=== PATIENT | female | born 1945 | race Caucasian/White ===

== ENCOUNTER 2018-11-25 21:13 | Emergency (ER) | payer OTHER, MEDICARE ==
[2018-11-25 21:53] LABS: PLATELET COUNT 221 10^3/uL (150-400)
[2018-11-25] MEDS ORDERED: NS 1,000 ML IV ONE (21:55)
--- NOTE | 2018-11-25 21:56 | EDPHY ---
H & P Stated Complaint: shaky and numbness in feet, tired, arrived from [place] tuesday Time Seen by Provider: 11/25/18 21:50 HPI/ROS: HPI CHIEF COMPLAINT: Multiple complaints, fatigue, lightheadedness, numbness and tingling, not feeling well HISTORY OF PRESENT ILLNESS: This patient is a very pleasant 73-year-old female she has a history of hypertension, thyroid disease, history of C diff remotely, she is visiting her relatives here in [place] from [place]. She flew on Tuesday from [place] to [place]. Each day she has felt subsequently worse. She complains of fatigue, lightheadedness, somewhat generalized weakness, numbness and tingling in her hands and feet. She has not had any vomiting or diarrhea. Complains of no significant chest pain or shortness of breath. She does state that on Tuesday she was rolling around the ground and felt a pop in the left side of her chest while playing with her grandkid she immediately had pain. She denies current any left-sided chest pain at this time. Past Medical History: Thyroid disease, hypertension, history of C diff, history of AFib Past Surgical History: No recent surgical history Social History: Denies daily use of drugs alcohol tobacco. Resides part-time in [place] part-time in [place]. Family History: Noncontributory ROS REVIEW OF SYSTEMS: 10 Systems were reviewed and negative with the exception of the elements mentioned in the history of present illness. Exam Constitutional triage nursing summary reviewed, vital signs reviewed, awake/ alert. Eyes normal conjunctivae and sclera, EOMI, PERRLA. HENT normal inspection, atraumatic, moist mucus membranes, no epistaxis, neck supple/ no meningismus, no raccoon eyes. Respiratory clear to auscultation bilaterally, normal breath sounds, no respiratory distress, no wheezing. Cardiovascular rate normal, regular rhythm, no murmur, no edema, distal pulses normal. Gastrointestinal soft, non-tender, no rebound, no guarding, normal bowel sounds, no distension, no pulsatile mass. Genitourinary no CVA tenderness. Musculoskeletal no midline vertebral tenderness, full range of motion, no calf swelling, no tenderness of extremities, no meningismus, good pulses, neurovascularly intact. Skin pink, warm, & dry, no rash, skin atraumatic. Neurologic awake, alert and oriented x 3, AAOx3, moves all 4 extremities equally, motor intact, sensory intact, CN II-XII intact, normal cerebellar, normal vision, normal speech. Psychiatric normal mood/affect. Heme/Lymph/Immune no lymphadenopathy. Differential Diagnosis: Differential diagnosis includes but is not limited to: ACS, atypical chest pain, pneumothorax, pneumonia, pulmonary embolism, aortic dissection, congestive heart failure, tumor, musculoskeletal pain, esophageal pain, GERD, peptic ulcer disease, pancreatitis Medical Decision Making: Plan for this patient IV establishment IV fluid bolus , basic electrolytes, thyroid, D-dimer, troponin, EKG, chest x-ray re-evaluate Re-evaluation: EKG interpretation by me on record in [facility] system. Impression time of EKG 2134, sinus rhythm rate of 76, no signs of acute ischemia on the EKG. D-dimer is negative. Chest x-ray two view reviewed negative for acute cardiopulmonary disease. Troponin 0.00 1226: Patient re-evaluated this time she is resting comfortably her blood pressure greatly improved with observation emergency room blood pressure 136/70. She denies any chest pain or shortness of breath she has received 1 L fluid here and is feeling better. Urinalysis reviewed shows urinary tract infection urine culture sent 1st dose of Rocephin given in emergency room Keflex and peridium for home. I encouraged her to stay well-hydrated drink lots of fluids and rest. I do believe she has a component about due to illness. There is no evidence acute coronary syndrome here. I believe she rest, stay well-hydrated, treat her urinary tract infection, deals with altitude she should do well however if she has worsening symptoms she understands to come to the emergency room. Patient is a repeat EKG time 12:42 a.m., sinus rhythm rate of 60 I do not appreciate acute ischemia. 1:17 a.m. I did discussed this case with Dr. Antoine cardiology on-call we reviewed her EKGs and case with 2-troponins she did not feel that either EKG was acutely ischemic and feels comfortable with the plan going home. I did discuss the patient had minimally enlarged heart on her chest x-ray and she was hypertensive when she arrived here. This is all improved, blood pressure is currently 136/70. I do recommend when she gets home to [place] or [place] she follows up with her primary care doctor. I have discussed at length with her. Additionally if she has any worsening symptoms while in town this includes shortness of breath, chest pain, fever, vomiting, not doing well she should return to the emergency room. I discussed the case with the patient I discussed that she is slightly low sodium needs to be followed up with her primary care doctor and increase her sodium intake, additionally most likely has altitude illness. I discussed that her EKG showed no acute ischemia but do have slight intraventricular conduction delay, that her cardiac silhouette on her chest x-ray was slightly enlarged. I do recommend when she returns to [place] or [place] where she lives permanently that she follows up with primary care doctor and additionally gets an echocardiogram of her heart. We discussed this at length her she is comfortable this plan she is eager to be discharged in emergency room she denies any chest pain or shortness of breath and wants to get home. We discussed return precautions. She is comfortable as planned is comfortable this plan. 2-troponins. Source: Patient - Personal History Current Tetanus Diphtheria and Acellular Pertussis (TDAP): Yes - Medical/Surgical History Hx Asthma: No Hx Chronic Respiratory Disease: No Hx Diabetes: No Hx Cardiac Disease: No Hx Renal Disease: No Hx Cirrhosis: No Hx Alcoholism: No Hx HIV/AIDS: No Hx Splenectomy or Spleen Trauma: No Other PMH: hypyothroid, afib, - Social History Smoking Status: Never smoked Constitutional: Initial Vital Signs Temperature (C) 37 C 11/25/18 21:18 Heart Rate 80 11/25/18 21:18 Respiratory Rate 16 11/25/18 21:18 Blood Pressure 194/106 H 11/25/18 21:18 O2 Sat (%) 97 11/25/18 21:18 O2 Delivery Mode Nasal Cannula O2 (L/minute) 2 Allergies/Adverse Reactions: risedronate sodium Allergy (Verified 11/25/18 21:16) Home Medications: Medication Instructions Recorded Aspirin 81mg (*) 11/25/18 Calcium 11/25/18 FLORASTOR 11/25/18 Magnesium Oxide 11/25/18 Metoprolol ER-Hctz 100-12.5 mg 11/25/18 Synthroid 11/25/18 Vit D3-Vit K/Berberine/Hops 11/25/18 Yuvafem 11/25/18 Cephalexin [Keflex] 500 mg PO Q6H #28 cap 04/21/19 Phenazopyridine HCl [Pyridium] 200 mg PO TID #15 tab 11/26/18 Medical Decision Making - Diagnostics Imaging Results: Imaging Impressions Chest X-Ray 11/25/18 21:31 Impression: 1. Clear lungs. No acute pulmonary process. 2. Minimal cardiomegaly. No failure. 3. No pneumoperitoneum. - Data Points Laboratory Results: Laboratory Results 11/25/18 21:32 11/25/18 21:32 11/26/18 11/25/18 11/25/18 00:35 23:05 22:34 WBC RBC Hgb Hct MCV MCH MCHC RDW Plt Count MPV Neut % (Auto) Lymph % (Auto) [place] % (Auto) Eos % (Auto) Baso % (Auto) Nucleat RBC Rel Count Absolute Neuts (auto) Absolute Lymphs (auto) Absolute Monos (auto) Absolute Eos (auto) Absolute Basos (auto) Absolute Nucleated RBC Immature Gran % Immature Gran # PT INR APTT D-Dimer Sodium Potassium Chloride Carbon Dioxide Anion Gap BUN Creatinine Estimated GFR Glucose Calcium Magnesium Total Bilirubin Conjugated Bilirubin Unconjugated Bilirubin AST ALT Alkaline Phosphatase POC Troponin I 0.00 ng/mL ng/mL 0.00 ng/mL ng/mL (0.00-0.08) (0.00-0.08) Total Protein Albumin Lipase Urine Color COLORLESS Urine Appearance CLEAR Urine pH 6.0 (5.0-7.5) Ur Specific [place] 1.002 (1.002-1.030) Urine Protein NEGATIVE (NEGATIVE) Urine Ketones NEGATIVE (NEGATIVE) Urine Blood 1+ H (NEGATIVE) Urine Nitrate NEGATIVE (NEGATIVE) Urine Bilirubin NEGATIVE (NEGATIVE) Urine Urobilinogen NEGATIVE EU EU (0.2-1.0) Ur Leukocyte Esterase TRACE H (NEGATIVE) Urine RBC 1-3 /hpf /hpf (0-3) Urine WBC 3-5 /hpf H /hpf (0-3) Ur Epithelial Cells TRACE /lpf /lpf (NONE-1+) Urine Bacteria TRACE /hpf H /hpf (NONE SEEN) Urine Glucose NEGATIVE (NEGATIVE) 11/25/18 11/25/18 11/25/18 21:32 21:32 21:32 WBC 6.94 10^3/uL 10^3/uL (3.80-9.50) RBC 4.15 10^6/uL L 10^6/uL (4.18-5.33) Hgb 12.7 g/dL g/dL (12.6-16.3) Hct 37.6 % L % (38.0-47.0) MCV 90.6 fL fL (81.5-99.8) MCH 30.6 pg pg (27.9-34.1) MCHC 33.8 g/dL g/dL (32.4-36.7) RDW 12.6 % % (11.5-15.2) Plt Count 221 10^3/uL 10^3/uL (150-400) MPV 9.5 fL fL (8.7-11.7) Neut % (Auto) 42.5 % % (39.3-74.2) Lymph % (Auto) 41.6 % % (15.0-45.0) [place] % (Auto) 12.2 % % (4.5-13.0) Eos % (Auto) 2.7 % % (0.6-7.6) Baso % (Auto) 0.9 % % (0.3-1.7) Nucleat RBC Rel Count 0.0 % % (0.0-0.2) Absolute Neuts (auto) 2.94 10^3/uL 10^3/uL (1.70-6.50) Absolute Lymphs (auto) 2.89 10^3/uL 10^3/uL (1.00-3.00) Absolute Monos (auto) 0.85 10^3/uL H 10^3/uL (0.30-0.80) Absolute Eos (auto) 0.19 10^3/uL 10^3/uL (0.03-0.40) Absolute Basos (auto) 0.06 10^3/uL 10^3/uL (0.02-0.10) Absolute Nucleated RBC 0.00 10^3/uL 10^3/uL (0-0.01) Immature Gran % 0.1 % % (0.0-1.1) Immature Gran # 0.01 10^3/uL 10^3/uL (0.00-0.10) PT 11.6 SEC L SEC (12.0-15.0) INR 0.88 (0.83-1.16) APTT 29.2 SEC SEC (23.0-38.0) D-Dimer 0.44 ug/mLFEU ug/mLFEU (0.00-0.50) Sodium 129 mEq/L L mEq/L (135-145) Potassium 4.1 mEq/L mEq/L (3.5-5.2) Chloride 95 mEq/L L mEq/L (97-110) Carbon Dioxide 25 mEq/l mEq/l (22-31) Anion Gap 9 mEq/L mEq/L (6-14) BUN 14 mg/dL mg/dL (7-23) Creatinine 0.9 mg/dL mg/dL (0.6-1.0) Estimated GFR > 60 Glucose 90 mg/dL mg/dL (70-100) Calcium 9.2 mg/dL mg/dL (8.5-10.4) Magnesium 2.0 mg/dL mg/dL (1.6-2.3) Total Bilirubin 0.6 mg/dL mg/dL (0.1-1.4) Conjugated Bilirubin 0.2 mg/dL mg/dL (0.0-0.5) Unconjugated Bilirubin 0.4 mg/dL mg/dL (0.0-1.1) AST 27 IU/L IU/L (14-46) ALT 42 IU/L IU/L (9-52) Alkaline Phosphatase 78 IU/L IU/L (38-126) POC Troponin I Total Protein 7.2 g/dL g/dL (6.3-8.2) Albumin 4.2 g/dL g/dL (3.5-5.0) Lipase 99 IU/L IU/L (23-300) Urine Color Urine Appearance Urine pH Ur Specific [place] Urine Protein Urine Ketones Urine Blood Urine Nitrate Urine Bilirubin Urine Urobilinogen Ur Leukocyte Esterase Urine RBC Urine WBC Ur Epithelial Cells Urine Bacteria Urine Glucose Medications Given: Discontinued Medications Sodium Chloride (Ns) 1,000 mls @ 0 mls/hr IV EDNOW ONE; Wide Open PRN Reason: Protocol Stop: 11/25/18 21:56 Last Admin: 11/25/18 22:18 Dose: 1,000 mls Ceftriaxone Sodium/Dextrose (Rocephin 1 Gm (Premix)) 50 mls @ 100 mls/hr IV EDNOW ONE PRN Reason: Protocol Stop: 11/26/18 00:26 Last Admin: 11/26/18 00:07 Dose: 50 mls Sodium Chloride (Ns) 500 mls @ 0 mls/hr IV ONCE ONE PRN Reason: Wide Open Stop: 11/26/18 00:27 Last Admin: 11/26/18 00:35 Dose: 500 mls Point of Care Test Results: Chemistry 11/26/18 11/25/18 00:35 22:34 POC Troponin I 0.00 ng/mL ng/mL 0.00 ng/mL ng/mL (0.00-0.08) (0.00-0.08) Departure - Departure Disposition: Home, Routine, Self-Care Clinical Impression: Lightheadedness, UTI (urinary tract infection) Condition: Good Instructions: Urinary Tract Infection in Women (ED), Mountain Sickness (ED), Near Syncope (ED), Lightheadedness (ED) Additional Instructions: 1. Stay well-hydrated drink lots of fluids and rest. 2. Return to the emergency room if develops worsening symptoms includes worsening shortness of breath, chest pain, fever, vomiting, not doing well 3. Antibiotics as prescribed Referrals: NONE *PRIMARY CARE P,. [Primary Care Provider] - As per Instructions [facility],. [Clinic] - As per Instructions Prescriptions: Cephalexin [Keflex] 500 mg PO Q6H #28 cap Phenazopyridine HCl [Pyridium] 200 mg PO TID #15 tab
[2018-11-25 22:10] LABS: INR 0.88 (0.83-1.16); PROTIME(PATIENT) 11.6 SEC (12.0-15.0)
[2018-11-26] MEDS ORDERED: NS 500 ML IV ONE (00:26)
[2018-11-26 01:15] VITALS: BP 117/74
--- NOTE | 2018-11-27 09:52 | CPEKG ---
Test Reason : OPEN Blood Pressure : / mmHG Vent. Rate : 076 BPM Atrial Rate : 076 BPM P-R Int : 178 ms QRS Dur : 112 ms QT Int : 372 ms P-R-T Axes : 052 015 035 degrees QTc Int : 419 ms Sinus rhythm Confirmed by Isaak Dyson ([id number]) on 11/27/2018 9:52:07 AM Referred By: PHYSICIAN ED Confirmed By:Isaak Dyson
--- NOTE | 2018-12-04 21:51 | CPEKG ---
Test Reason : OPEN Blood Pressure : / mmHG Vent. Rate : 060 BPM Atrial Rate : 060 BPM P-R Int : 189 ms QRS Dur : 109 ms QT Int : 440 ms P-R-T Axes : 054 008 020 degrees QTc Int : 440 ms Sinus rhythm Consider anterior infarct Confirmed by Hitesh Willard ([id number]) on 12/04/2018 9:50:50 PM Also confirmed by Hitesh Willard ([id number]) on 12/04/2018 9:51:36 PM Referred By: Hitesh Willard Confirmed By:Hitesh Willard
== END 2018-11-26 01:40 | disposition home or self-care (01) ==
DX: R42 Dizziness and giddiness (principal); N39.0 Urinary tract infection, site not specified; I10 Essential (primary) hypertension; E86.9 Volume depletion, unspecified
CPT/HCPCS: 71046; 93005; 96361; 96365; 99285; J0696; 84484-ER

== ENCOUNTER 2018-11-28 12:51 | Emergency (ER) | payer OTHER, MEDICARE ==
[2018-11-28] MEDS ORDERED: NS 1,000 ML IV ONE (14:16)
--- NOTE | 2018-11-28 14:16 | EDPHY ---
H & P Stated Complaint: light headed, dizzy, tingling all over; [place] Time Seen by Provider: 11/28/18 13:54 HPI/ROS: CHIEF COMPLAINT: Diffuse paresthesias, weakness, fatigue HISTORY OF PRESENT ILLNESS: The patient presents to the ED with complaints of intermittent diffuse paresthesias, weakness and fatigue. The patient is visiting family from [place]. She has been here for approximately a week. The patient was seen in the ED 3 days ago with similar symptoms. At that point time she had a negative workup with normal EKGs, troponins, metabolic testing and a chest x-ray. The patient did injure her left chest wall while playing with her grandchild earlier in the week. The patient denies any asymmetric calf pain or swelling. She denies pleuritic chest pain. The patient does endorse symptoms of anxiety. She endorses symptoms of frequent sighing. The patient denies feeling anxious about her trip to [place]. Prior to coming here she reports that she had consumed approximately a glass of wine a day. She reports that she has had maybe 1-2 glasses of wine since she has been here. The patient was started on antibiotics for possible urinary tract infection however in reviewing her cultures there is no evidence of a active UTI and she had a contaminant. REVIEW OF SYSTEMS: A comprehensive 10 point review of systems is otherwise negative aside from elements mentioned in the history of present illness. Source: Patient Exam Limitations: No limitations - Personal History Current Tetanus/Diphtheria Vaccine: Yes Current Tetanus Diphtheria and Acellular Pertussis (TDAP): Yes - Medical/Surgical History Hx Asthma: No Hx Chronic Respiratory Disease: No Hx Diabetes: No Hx Cardiac Disease: No Hx Renal Disease: No Hx Cirrhosis: No Hx Alcoholism: No Hx HIV/AIDS: No Hx Splenectomy or Spleen Trauma: No Other PMH: hypyothroid, afib, - Social History Smoking Status: Never smoked - Physical Exam Exam: General Appearance: Alert, slightly anxious, no acute distress Eyes: Pupils equal and round no pallor or injection ENT, Mouth: Mucous membranes moist Respiratory: There are no retractions, lungs are clear to auscultation Cardiovascular: Regular rate and rhythm Gastrointestinal: Abdomen is soft and nontender, no masses, bowel sounds normal Neurological: A&O, normal motor function, normal sensory exam, normal cranial nerves Skin: Warm and dry, no rashes Musculoskeletal: Neck is supple nontender Extremities: symmetrical, full range of motion Psychiatric: Patient is oriented X 3, there is no agitation Constitutional: Initial Vital Signs Temperature (C) 36.8 C 11/28/18 12:53 Heart Rate 74 11/28/18 12:53 Respiratory Rate 16 11/28/18 12:53 Blood Pressure 182/86 H 11/28/18 12:53 O2 Sat (%) 98 11/28/18 12:53 O2 Delivery Mode Room Air Allergies/Adverse Reactions: risedronate sodium Allergy (Verified 11/25/18 21:16) Home Medications: Medication Instructions Recorded Aspirin 81mg (*) 11/25/18 Calcium 11/25/18 FLORASTOR 11/25/18 Magnesium Oxide 11/25/18 Metoprolol ER-Hctz 100-12.5 mg 11/25/18 Synthroid 11/25/18 Vit D3-Vit K/Berberine/Hops 11/25/18 Yuvafem 11/25/18 Cephalexin [Keflex] 500 mg PO Q6H #28 cap 11/26/18 Phenazopyridine HCl [Pyridium] 200 mg PO TID #15 tab 11/26/18 Medical Decision Making - Diagnostics EKG Interpretation: EKG: Complete interpretation has been separately recorded in the [employer] archive. Summary impression: Sinus rhythm, rate 67, no dynamic changes noted from her prior EKG ED Course/Re-evaluation: The patient presents the emergency department with complaints which I feel are most consistent with anxiety. She has generalized paresthesias, frequent sign, feeling of uneasiness and has had a fairly negative workup with multiple negative EKGs, negative troponins, a negative D-dimer and a screening for a UTI which was negative. The patient was hypertensive upon arrival however had normalization of her blood pressure in the ED. I discussed with the patient that I do not feel there is an acute process going on today and that I do feel that her symptoms are mediated by anxiety. She had been drinking a glass of wine a night prior to her visit to [place]. There is certainly a possibility that altitude and anxiety or contributing to her symptoms. The patient feels significant relief after our discussion. She does admit that anxiety is likely the culprit of her symptoms today. She is comfortable observing her symptoms, working on meditation and increasing her rest. Patient will be discharged home with instructions to return to the ED for the development of focal neurologic symptoms, chest pain of profound shortness of breath. Workup in the emergency department consisted of a repeat EKG which demonstrates no dynamic changes, metabolic panel which is normal and a ongoing negative troponin. Differential Diagnosis: Differential diagnosis considered includes hypertensive emergency, hypertensive urgency TIA, metabolic derangement - Data Points Laboratory Results: Laboratory Results 11/28/18 13:46 11/28/18 11/28/18 13:46 13:46 Sodium 130 mEq/L L mEq/L (135-145) Potassium 4.4 mEq/L mEq/L (3.5-5.2) Chloride 96 mEq/L L mEq/L (97-110) Carbon Dioxide 24 mEq/l mEq/l (22-31) Anion Gap 10 mEq/L mEq/L (6-14) BUN 9 mg/dL mg/dL (7-23) Creatinine 0.6 mg/dL mg/dL (0.6-1.0) Estimated GFR > 60 Glucose 84 mg/dL mg/dL (70-100) Calcium 9.7 mg/dL mg/dL (8.5-10.4) Troponin I < 0.012 ng/mL ng/mL (0.000-0.034) Medications Given: Discontinued Medications Sodium Chloride (Ns) 1,000 mls @ 0 mls/hr IV EDNOW ONE; Wide Open PRN Reason: Protocol Stop: 11/28/18 14:17 Last Admin: 11/28/18 14:19 Dose: 1,000 mls Departure - Departure Disposition: Home, Routine, Self-Care Clinical Impression: Paresthesias, Anxiety Condition: Good Instructions: Anxiety (ED) Additional Instructions: 1. The workup in the emergency department today continues to be unremarkable. 2. I reviewed all of your EKGs and find no worrisome abnormalities. 3. I do feel that anxiety is likely contributing to your symptoms today. I would continue to work on meditation. 4. Return to the emergency department for markedly worsening symptoms, chest pain, significant shortness of breath, numbness or weakness on one side of the body relative to the other, fever, acute pain or other concerns.
--- NOTE | 2018-11-28 15:21 | CPEKG ---
Test Reason : OPEN Blood Pressure : / mmHG Vent. Rate : 067 BPM Atrial Rate : 067 BPM P-R Int : 185 ms QRS Dur : 109 ms QT Int : 393 ms P-R-T Axes : 044 004 019 degrees QTc Int : 415 ms Sinus rhythm Confirmed by Angel Sherman ([id number]) on 11/28/2018 3:20:53 PM Referred By: PHYSICIAN ED Confirmed By:Angel Sherman
[2018-11-28 15:44] VITALS: BP 168/92
== END 2018-11-28 15:53 | disposition home or self-care (01) ==
DX: R20.2 Paresthesia of skin (principal); F41.9 Anxiety disorder, unspecified; E86.9 Volume depletion, unspecified; R53.1 Weakness; R53.83 Other fatigue